=== PATIENT | male | born 1965 | race Caucasian/White ===

== ENCOUNTER → 2016-05-10 | Outpatient (CLI) | payer OTHER ==
[~2016-05-10] MED LIST: METFORMIN HCL500 MG PO
== END ==
LOC: CT 04-30 13:00 → KOH-I 11:45
DX: J98.4 Other disorders of lung (principal); R91.8 Other nonspecific abnormal finding of lung field; Z88.1 Allergy status to other antibiotic agents
CPT/HCPCS: 71250

== ENCOUNTER → 2020-02-25 | Day surgery (SDC) | payer OTHER ==
[~2020-02-25] MED LIST changes: +ADMELOG SO100 UNIT/1 SC; +ASPIRIN EC81 MG PO; +BASAGLAR K100 UNIT/1 SQ; +CRESTOR40 MG PO; +FISH OIL 1,0001 EAC4 PO; +LIPITOR TAB 1010 MG PO; +LISINOPRIL20 MG PO; +METHOCARBAMOL500 MG PO; +MOBIC15 MG PO; +NEURONTIN400 MG PO; +OZEMPIC1 MG/0.75 SQ
== END | disposition home or self-care (01) ==
LOC: OR 07:37 → EDSTATUS 10:45
PROVIDERS: Surgery
PROC: B41DZZZ Fluoroscopy of Aorta and Bilateral Lower Extremity Arteries (ICD-10-PCS; principal; 2020-02-25 10:45)
DX: E11.51 Type 2 diabetes mellitus with diabetic peripheral angiopathy without gangrene (principal); I70.201 Unspecified atherosclerosis of native arteries of extremities, right leg; I10 Essential (primary) hypertension; E66.9 Obesity, unspecified; J44.9 Chronic obstructive pulmonary disease, unspecified; Z79.82 Long term (current) use of aspirin; Z72.0 Tobacco use; Z79.4 Long term (current) use of insulin; Z79.899 Other long term (current) drug therapy
CPT/HCPCS: 76000; 82962; C1769; C9113; J1170; J1644; J2001; J2060; J2250; J2405; J2704; J2710; J2720; J3010; J3370; J7030; J7040; J7050; J7070; J7120; Q9962

== ENCOUNTER → 2020-03-28 | Outpatient (CLI) | payer OTHER ==
[2020-03-28 12:17] LABS: RED BLOOD COUNT 4.42 M/UL (4.20-5.50); WHITE BLOOD COUNT 7.7 K/UL (4.5-11.0)
[2020-03-28 12:37] LABS: BUN/CREATININE RATIO 5 (0-10)
== END ==
LOC: OPSV2 10:00
PROVIDERS: Surgery
DX: Z53.8 Procedure and treatment not carried out for other reasons (principal)
CPT/HCPCS: 36415; 71046; 80053; 81001; 85025; 85610; 85730; 86850; 86900; 86901; 93005; J2060; P9045

== ENCOUNTER 2020-03-29 06:22 | Inpatient (IN) | payer OTHER ==
[~2020-03-29] VITALS: Ht 175.3 cm; Wt 113.4 kg
[~2020-03-29 06:22] MED LIST changes: -CRESTOR40 MG PO; -FISH OIL 1,0001 EAC4 PO; -METFORMIN HCL500 MG PO
[2020-03-29 14:50] LABS: HEMOGLOBIN 11.2 gm/dl (14.0-17.5)
[2020-03-29 15:30] LABS: RED BLOOD COUNT 3.77 M/UL (4.20-5.50); WHITE BLOOD COUNT 12.9 K/UL (4.5-11.0)
[2020-03-29] MEDS ORDERED: METFORMIN HCL500 MG PO (17:09)
[2020-03-30 05:00] LABS: HEMOGLOBIN 11.1 gm/dl (14.0-17.5); RED BLOOD COUNT 3.76 M/UL (4.20-5.50)
[2020-03-30 05:02] LABS: WHITE BLOOD COUNT 9.1 K/UL (4.5-11.0)
[2020-03-30 05:14] LABS: BUN/CREATININE RATIO 8 (0-10)
[2020-03-31] MEDS ORDERED: CRESTOR40 MG PO (09:12)
[2020-03-31] MEDS ORDERED: FISH OIL 1,0001 EAC4 PO (09:13)
--- NOTE | 2020-03-31 10:41 | NUR ---
03/31/20 0700 PATIENT STATED THAT MD TOLD PATIENT LAST NIGHT THAT "HE WOULD BE ABLE TO GET DISCAHRGED BEFORE BREAKFAST". RN EXPLAINED TO PATIENT THAT MD IS IN THE OR THIS MORNING FOR AN EMERGENT CASE AND WOULD NOT ABLE ABLE TO COME DISCHARGE PATIENT FOR A FEW HOURS. PATIENT STATED THAT HE WOULD SIGN AMA IF HE WAS NOT DISCHARGED THIS MORNING. 03/31/20 0859 MD CALLED TO SEE WHEN SHE WOULD BE AVAILABLE TO PUT IN OFFICIAL DISCHARGE ORDERS FOR PATIENT. MD STATED THAT SHE WROTE IN CHART THAT PATIENT IS OKAY TO BE DISCAHRGED AND THAT SHE FILLED OUT PATIENTS HOME MED REC AND CALLED PATIENTS [facility] WITH NEW MED ORDERS (ATORVASTATIN AND FISH OIL). MD STATED FOR THE RN TO PUT IN THE DISCHARGE WITH NEW MEDS ORDERED AND THAT SHE WOULD CALL PATIENT WITH A FOLLOW UP APT. 03/31/20 0940 PATIENTS REQUESTED TO SPEAK TO A [employer] GUIDE ABOUT DR. DA SILVA DISCHARGE PROCESS. JULIA CEDEÑO AT [facility] DISCCUSSING PATIENT AND PATIENTS WIFES COMPLAINT. PATIENT WAS DISSATISFIED THAT MD DID NOT ROUND THIS MORNING TO DISCHARGE HIM AND THAT MD DID NOT FOLLOW UP ADEQUATELY THROUGH HIS HOSPITAL STAY. 03/31/20 0948 PATIENT DISCHARGED HOME PER MD 03/31/20 1015 MD IN UNIT AND AWARE OF PATIENTS CONCERN OF NOT HAVING A PRESCRIPTION FOR PAIN MEDICATION
--- NOTE | 2020-03-31 11:10 | NUR ---
03/31/20 1110 PATIENTS WAS CONTACTED TO DISCUSS DISCHARGED HOME MEDS. MD ADDED PLAVIX TO MED LIST AFTER PATIENT WAS DISCHARGED. SHE STATED THAT MD HAD CALLED HER AFTER PATIENT HAD BEEN DISCHARGED AND STATED THAT ALL OF HIS MEDS WERE CALLED INTO THE PHARMACY INCLUDING PAIN MEDICATIONS. STATED THAT SHE WILL CALL BACK ONCE SHE GETS MEDS FROM PHARMACY
== END 2020-03-31 10:00 | disposition home or self-care (01) | DRG 254 ==
LOC: ZOBSOF 06:22 → CCU 06:22 → EDSTATUS 07:30 → OR 07:30 → CCU 13:16
PROVIDERS: ADMIT Surgery
PROC: 041K0JL Bypass Right Femoral Artery to Popliteal Artery with Synthetic Substitute, Open Approach (ICD-10-PCS; principal; 2020-03-29 07:30)
DX: I70.211 Atherosclerosis of native arteries of extremities with intermittent claudication, right leg (principal); K21.9 Gastro-esophageal reflux disease without esophagitis; E78.5 Hyperlipidemia, unspecified; E11.51 Type 2 diabetes mellitus with diabetic peripheral angiopathy without gangrene; M19.90 Unspecified osteoarthritis, unspecified site; E66.9 Obesity, unspecified; Z68.36 Body mass index [BMI] 36.0-36.9, adult; F17.290 Nicotine dependence, other tobacco product, uncomplicated; E11.42 Type 2 diabetes mellitus with diabetic polyneuropathy
CPT/HCPCS: 36415; 71046; 80053; 81001; 82962; 85025; 85027; 85610; 85730; 86850; 86900; 86901; 93005; 94760; C1768; C9113; J1580; J1644; J2001; J2060; J2250; J2370; J2405; J2704; J2710; J2720; J3010; J3370; J7030; J7040; J7050; J7070; J7120; P9045

== ENCOUNTER → 2021-01-03 | Outpatient (CLI) | payer OTHER ==
[~2021-01-03] MED LIST changes: +CRESTOR40 MG PO; +FISH OIL 1,0001 EAC4 PO; +METFORMIN HCL500 MG PO
== END ==
LOC: KOH-I 13:55
DX: I73.9 Peripheral vascular disease, unspecified (principal)
CPT/HCPCS: 93922; 93925

== ENCOUNTER → 2021-07-19 | Outpatient (CLI) | payer OTHER | LOC: KOH-I 14:49 | DX: F17.210 Nicotine dependence, cigarettes, uncomplicated (principal) | CPT/HCPCS: 71271 ==

== ENCOUNTER → 2021-08-24 | Day surgery (SDC) | payer OTHER ==
[~2021-08-24] VITALS: Ht 177.8 cm; Wt 117.9 kg
[~2021-08-24] MED LIST changes: +BUPRENORPHIN-N1 EACH PO; +CLOPIDOGREL75 MG PO; +FUROSEMIDE40 MG PO; +HUMALOG100 UNIT/3 SC; +JARDIANCE10 MG PO; +LANTUS SOL100 UNIT/1 SC; +LISINOPRIL10 MG PO; +POTASSIUM CHLO10 ME1 PO; +PROAIR HFA8.5 GM INH; +TRULICITY3 MG/0.5 M SQ; +VENTOLIN INHALER INH; +VITAMIN B-121000 MC2 SL; +VITAMIN D21250 MCG PO
== END | disposition home or self-care (01) ==
LOC: OR 08-23 12:00
DX: J98.4 Other disorders of lung (principal); I10 Essential (primary) hypertension; E11.51 Type 2 diabetes mellitus with diabetic peripheral angiopathy without gangrene; E78.5 Hyperlipidemia, unspecified; K21.9 Gastro-esophageal reflux disease without esophagitis; E11.42 Type 2 diabetes mellitus with diabetic polyneuropathy; E78.00 Pure hypercholesterolemia, unspecified; F17.210 Nicotine dependence, cigarettes, uncomplicated; Z88.1 Allergy status to other antibiotic agents; Z79.4 Long term (current) use of insulin; Z79.82 Long term (current) use of aspirin; Z79.899 Other long term (current) drug therapy
CPT/HCPCS: 82962; 87015; 87070; 87077; 87116; 87186; 87205; 87206; J2704; J3010

== ENCOUNTER 2021-09-25 14:36 | Emergency (ER) | payer OTHER ==
[2021-09-25 17:19] LABS: HEMOGLOBIN 12.5 gm/dl (14.0-17.5); RED BLOOD COUNT 4.42 M/UL (4.20-5.50); WHITE BLOOD COUNT 7.6 K/UL (4.5-11.0)
[2021-09-25 17:46] LABS: BUN/CREATININE RATIO 7 (0-10)
[2021-09-25] MEDS ORDERED: ELIQUIS5 MG PO (18:56)
== END 2021-09-25 19:14 | disposition left against medical advice (07) ==
LOC: ER1 14:36
PROVIDERS: Preventive Medicine Occupational Medicine
DX: I70.201 Unspecified atherosclerosis of native arteries of extremities, right leg (principal); F17.210 Nicotine dependence, cigarettes, uncomplicated
CPT/HCPCS: 80053; 83605; 85025; 85652; 86140; 93925; 93970; 96374; 99283; J1170

== ENCOUNTER → 2021-11-29 | Outpatient (CLI) | payer OTHER ==
[~2021-11-29] MED LIST changes: +ELIQUIS5 MG PO
== END ==
LOC: EXRD 13:35
DX: R06.02 Shortness of breath (principal)
CPT/HCPCS: 71046